=== PATIENT | female | born 1950 | race Caucasian/White ===

== ENCOUNTER 2017-12-24 09:29 | Outpatient (CLI) | payer MEDICARE ==
[2017-12-24 10:21] LABS: #Basophils 0.1 thou/uL (0.0-0.2); #Eosinphils 0.1 thou/uL (0.0-0.7); #Lymphocytes 2.3 thou/uL (1.20-3.40); #Monocytes 0.4 thou/uL (0.11-0.59); #Neutrophils 3.8 thou/uL (1.40-6.50); %Basophils 1.6 % (0.0-1.0); %Eosinophils 1.5 % (0.0-10.0); %Lymphocytes 34.2 % (21.0-51.0); %Monocytes 6.4 % (0.0-10.0); %Neutrophils 56.3 % (42.0-75.0); Hemoglobin 12.6 g/dL (12.0-16.0); Mean Corpuscular HGB CONC 32.2 g/dL (32.0-36.0); Mean Corpuscular Hemoglobin 25.8 pg (27.0-31.0); Mean Corpuscular Volume 80.3 fl (81.0-99.0); Mean Platelet Volume 8.1 fL (7.4-10.4); Platelet Count 239 thou/uL (130-400); RBC Distribution Width 11.9 % (11.5-14.5); Red Blood Cell (RBC) Count 4.86 mill/uL (4.20-5.40); White Blood Cell (WBC) Count 6.8 thou/uL (4.8-10.8)
[2017-12-24 11:02] LABS: ALT (SGPT) 26 U/L (8-55); AST (SGOT) 13 U/L (5-34); Albumin 4.2 g/dL (3.4-4.8); Alkaline Phosphatase 58 U/L (40-150); Anion Gap 17 mmol/L (10-20); BUN (Urea Nitrogen) 15 mg/dL (9.8-20.1); Bilirubin, Total 0.6 mg/dL (0.2-1.2); Calc. Creatinine Clearance 0 mL/min (70-130); Calcium 9.3 mg/dL (7.8-10.44); Carbon Dioxide 24 mmol/L (23-31); Cardiac Risk 3.2 (Less than 4.5); Chloride 103 mmol/L (98-107); Cholesterol 168 mg/dl (< 200 Desired); Estimated GFR-MDRD 71; Globulin 2.5 g/dL (2.4-3.5); Glucose 232 mg/dL (80-115); HDL Cholesterol 53 mg/dL (>60 Neg Risk); LDL Cholesterol, Calculated 95 mg/dL; Potassium 4.2 mmol/L (3.5-5.1); Protein, Total 6.7 g/dL (6.0-8.3); Sodium 140 mmol/L (136-145); Triglycerides 98 mg/dL (Less than 150)
[2017-12-24 11:19] LABS: Thyroid Stimulating Hormone 0.8673 uIU/mL (0.35-4.94)
--- NOTE | 2017-12-24 12:07 | ULT ---
THYROID ULTRASOUND: INDICATION: Thyroid goiter. FINDINGS: The right thyroid lobe measures 4.0 x 1.2 x 1.4 cm. The left thyroid lobe measures 2.1 x 1.2 x 0.9 c m. The thyroid isthmus measures 0.2 cm. There is diffuse heterogeneous appearance of the thyroid gl and. There is a slightly hyperechoic 8 mm nodule seen within the mid aspect of the right thyroid gla nd. There are 2 hypoechoic solid lesions within the left mid thyroid gland measuring 7 mm apiece. IMPRESSION: 1. Multinodular goiter. 2. TIRADS 3 lesion involving the mid right thyroid gland. No followup is recommended. 3. TIRADS 4 lesions involving the mid left thyroid gland. These are below 1 cm in size. No followu p is recommended. POS: [facility]
[2017-12-24 16:56] LABS: Hemoglobin A1c 8.8 % (4.0-6.0)
[2017-12-24 17:23] LABS: Free T4 (Free Thyroxine) 0.89 ng/dL (0.70-1.48)
== END 2017-12-24 09:30 ==
LOC: MADLABBHPM 09:29 → EDSTATUS 09:31
PROVIDERS: ATTEND Family Medicine
DX: E04.9 Nontoxic goiter, unspecified (principal); E04.2 Nontoxic multinodular goiter; G25.81 Restless legs syndrome; E11.65 Type 2 diabetes mellitus with hyperglycemia; E78.5 Hyperlipidemia, unspecified; F41.8 Other specified anxiety disorders
CPT/HCPCS: 36415; 76536; 80053; 80061; 83036; 83735; 84439; 84443; 85025

== ENCOUNTER 2018-10-10 10:40 | Outpatient (CLI) | payer MEDICARE, OTHER ==
[2018-10-10 11:39] LABS: ALT (SGPT) 33 U/L (8-55); AST (SGOT) 22 U/L (5-34); Albumin 4.3 g/dL (3.4-4.8); Alkaline Phosphatase 60 U/L (40-150); Anion Gap 15 mmol/L (10-20); BUN (Urea Nitrogen) 13 mg/dL (9.8-20.1); Bilirubin, Total 0.5 mg/dL (0.2-1.2); Calc. Creatinine Clearance 0 mL/min (70-130); Calcium 9.2 mg/dL (7.8-10.44); Carbon Dioxide 26 mmol/L (23-31); Cardiac Risk 3.6 (Less than 4.5); Chloride 105 mmol/L (98-107); Cholesterol 175 mg/dl (< 200 Desired); Estimated GFR-MDRD 73; Globulin 2.3 g/dL (2.4-3.5); Glucose 193 mg/dL (80-115); HDL Cholesterol 49 mg/dL (>60 Neg Risk); LDL Cholesterol, Calculated 105 mg/dL; Potassium 4.4 mmol/L (3.5-5.1); Protein, Total 6.6 g/dL (6.0-8.3); Sodium 142 mmol/L (136-145); Triglycerides 106 mg/dL (Less than 150)
--- NOTE | 2018-10-10 11:41 | RAD ---
TWO VIEWS OF BILATERAL HIPS: Comparison: None. History: Chronic hip pain. FINDINGS: Two views of the bilateral hips shows no evidence of acute fracture or dislocation. No significant de generative changes are seen in either hip. The sacroiliac joints and pubic symphysis are unremarkable . IMPRESSION: Unremarkable exam. POS: [facility]
[2018-10-10 12:44] LABS: Thyroid Stimulating Hormone 0.8271 uIU/mL (0.35-4.94)
[2018-10-10 17:05] LABS: Hemoglobin A1c 8.6 % (4.0-6.0)
[2018-10-10 17:28] LABS: Creatinine, Urine 147.34 mg/dL (47-110); Microalbumin/Creat Ratio 20.4 mg/g (Less than 30)
[2018-10-10 17:31] LABS: Free T4 (Free Thyroxine) 0.9 ng/dL (0.70-1.48)
== END 2018-10-10 10:41 | disposition home or self-care (01) ==
LOC: MADLABBHPM 10:40
PROVIDERS: ATTEND Family Medicine
DX: M25.551 Pain in right hip (principal); M25.552 Pain in left hip; E04.2 Nontoxic multinodular goiter; E78.5 Hyperlipidemia, unspecified; E11.9 Type 2 diabetes mellitus without complications
CPT/HCPCS: 36415; 73522; 80053; 80061; 82043; 83036; 84439; 84443

== ENCOUNTER 2019-05-14 14:13 | Outpatient (CLI) | payer MEDICARE, OTHER ==
--- NOTE | 2019-05-14 14:57 | RAD ---
Exam: 3 views lumbar spine HISTORY: Back pain. Dorsalgia. COMPARISON: None FINDINGS: 5 lumbar type vertebra. Lumbar spine vertebral body height is maintained. No fracture. Stra ightening of normal lumbar lordosis. Mild loss of disc space height and osteophyte formation in the thoracolumbar junction and upper lumbar spine. Atherosclerosis of the aorta is noted. Visualized sacrum and bony pelvis are unremarkable IMPRESSION: Mild degenerative changes
--- NOTE | 2019-05-14 15:01 | RAD ---
EXAM: Cervical spine 3 views: HISTORY: Neck pain, dorsalgia COMPARISON: None FINDINGS: C7-T1 is partially obscured on the lateral view and C1 and C2 odontoid are partially obscured on the AP open mouth view. No evidence for acute fracture or dislocation involving the visualized spine. There are disc osteophytosis and facet arthrosis changes. No evidence for malalignment. No evidence for a bone lesion. IMPRESSION: Spondylosis. No significant acute process.
== END 2019-05-14 14:14 | disposition home or self-care (01) ==
LOC: MADRAD 14:13
PROVIDERS: ATTEND Family Medicine
DX: M54.5 Low back pain (principal); M54.2 Cervicalgia; M47.812 Spondylosis without myelopathy or radiculopathy, cervical region; M47.816 Spondylosis without myelopathy or radiculopathy, lumbar region
CPT/HCPCS: 72040; 72100

== ENCOUNTER 2020-07-04 12:02 | Emergency (ER) | payer MEDICARE, OTHER ==
[2020-07-04] MEDS ORDERED: Cephalexin 500 MG CAP ONE (12:33)
== END 2020-07-04 12:48 | disposition home or self-care (01) ==
LOC: MADERS 12:02
DX: L03.114 Cellulitis of left upper limb (principal); E11.9 Type 2 diabetes mellitus without complications; I10 Essential (primary) hypertension; E78.5 Hyperlipidemia, unspecified; M19.90 Unspecified osteoarthritis, unspecified site; Z79.4 Long term (current) use of insulin; Z79.899 Other long term (current) drug therapy
CPT/HCPCS: 99283

== ENCOUNTER 2020-12-20 12:17 | Outpatient (CLI) | payer MEDICARE, OTHER ==
[2020-12-20 13:05] LABS: ALT (SGPT) 32 U/L (8-55); AST (SGOT) 23 U/L (5-34); Albumin 4.2 g/dL (3.4-4.8); Alkaline Phosphatase 47 U/L (40-110); Anion Gap 14 mmol/L (10-20); BUN (Urea Nitrogen) 8 mg/dL (9.8-20.1); Bilirubin, Total 0.6 mg/dL (0.2-1.2); Calc. Creatinine Clearance 0 mL/min (70-130); Calcium 9.1 mg/dL (7.8-10.44); Carbon Dioxide 27 mmol/L (23-31); Cardiac Risk 3.3 (Less than 4.5); Chloride 105 mmol/L (98-107); Cholesterol 145 mg/dl (< 200 Desired); Globulin 2.5 g/dL (2.4-3.5); Glucose 100 mg/dL (80-115); HDL Cholesterol 44 mg/dL (>60 Neg Risk); LDL Cholesterol, Calculated 80 mg/dL; Potassium 4.1 mmol/L (3.5-5.1); Protein, Total 6.7 g/dL (5.8-8.1); Sodium 142 mmol/L (136-145); Triglycerides 106 mg/dL (Less than 150)
[2020-12-20 13:18] LABS: #Basophils 0.1 thou/uL (0.0-0.2); #Eosinphils 0.1 thou/uL (0.0-0.7); #Lymphocytes 3.1 thou/uL (1.20-3.40); #Monocytes 0.5 thou/uL (0.11-0.59); %Basophils 1.3 % (0.0-1.0); %Eosinophils 0.9 % (0.0-10.0); %Lymphocytes 39.7 % (21.0-51.0); %Monocytes 5.9 % (0.0-10.0); %Neutrophils 52.2 % (42.0-75.0); Hemoglobin 12.9 g/dL (12.0-16.0); Mean Corpuscular HGB CONC 31.1 g/dL (32.0-36.0); Mean Corpuscular Hemoglobin 26.1 pg (27.0-31.0); Mean Corpuscular Volume 83.8 fL (78.0-98.0); Mean Platelet Volume 10.3 fL (7.4-10.4); Platelet Count 246 thou/uL (130-400); RBC Distribution Width 12.4 % (11.5-14.5); Red Blood Cell (RBC) Count 4.93 mill/uL (4.20-5.40); White Blood Cell (WBC) Count 7.7 thou/uL (4.8-10.8)
== END 2020-12-20 12:18 | disposition home or self-care (01) ==
LOC: MADLAB 12:17
PROVIDERS: ATTEND Family Medicine
DX: M25.551 Pain in right hip (principal); E78.5 Hyperlipidemia, unspecified; E11.9 Type 2 diabetes mellitus without complications; I10 Essential (primary) hypertension; R26.81 Unsteadiness on feet; F31.9 Bipolar disorder, unspecified; F41.8 Other specified anxiety disorders
CPT/HCPCS: 36415; 80053; 80061; 84443; 85025

== ENCOUNTER 2021-04-15 08:56 | Outpatient (CLI) | payer MEDICARE | END 2021-04-15 08:57 | disposition home or self-care (01) | LOC: MADRAD 08:56 | PROVIDERS: ATTEND Family Medicine | DX: M25.551 Pain in right hip (principal); M54.50 Low back pain, unspecified; M16.11 Unilateral primary osteoarthritis, right hip; M47.816 Spondylosis without myelopathy or radiculopathy, lumbar region | CPT/HCPCS: 72100 ==

== ENCOUNTER 2021-05-16 15:12 | Emergency (ER) | payer MEDICARE ==
[2021-05-16 16:13] LABS: Bilirubin Negative (Negative); Blood, Urine Negative (Negative); Clarity Clear (Clear); Glucose, Urine (Dipstick) Negative (Negative); Ketone, Urine Negative (Negative); Leukocyte Negative (Negative); Nitrite Negative (Negative); Protein, Urine (Dipstick) Negative (Neg-Trace); Urobilinogen 0.2 mg/dL (Less than 2); pH, Urine 5.5 (5.0-9.0)
== END 2021-05-16 16:45 | disposition home or self-care (01) ==
LOC: MADERS 15:12
DX: B02.9 Zoster without complications (principal); E11.9 Type 2 diabetes mellitus without complications; E78.5 Hyperlipidemia, unspecified; I10 Essential (primary) hypertension
CPT/HCPCS: 81003; 99284

== ENCOUNTER 2021-06-15 07:53 | Outpatient (CLI) | payer MEDICARE, OTHER | END 2021-06-15 07:54 | disposition home or self-care (01) | LOC: MADRAD 07:53 | PROVIDERS: ATTEND Family Medicine | DX: E04.2 Nontoxic multinodular goiter (principal) | CPT/HCPCS: 76536 ==

== ENCOUNTER 2021-07-13 19:49 | Emergency (ER) | payer MEDICARE, OTHER | END 2021-07-13 21:28 | disposition home or self-care (01) | LOC: MADERS 19:49 | DX: M13.0 Polyarthritis, unspecified (principal); F43.21 Adjustment disorder with depressed mood; E78.5 Hyperlipidemia, unspecified; I10 Essential (primary) hypertension; Z79.84 Long term (current) use of oral hypoglycemic drugs; Z79.4 Long term (current) use of insulin; Z79.899 Other long term (current) drug therapy | CPT/HCPCS: 99283 ==

== ENCOUNTER 2021-10-17 15:45 | Outpatient (CLI) | payer MEDICARE | END 2021-10-17 15:46 | disposition home or self-care (01) | LOC: MADRAD 15:45 | PROVIDERS: ATTEND Family Medicine | DX: M25.561 Pain in right knee (principal) ==

== ENCOUNTER 2022-03-12 20:46 | Emergency (ER) | payer MEDICARE ==
[2022-03-12] MEDS ORDERED: predniSONE 20 MG TAB ONE (22:09)
[2022-03-12] MEDS ORDERED: predniSONE 10 MG TAB ONE (22:09)
== END 2022-03-12 22:17 | disposition home or self-care (01) ==
LOC: MADERS 20:46
DX: L23.7 Allergic contact dermatitis due to plants, except food (principal); I10 Essential (primary) hypertension; E11.9 Type 2 diabetes mellitus without complications; E78.5 Hyperlipidemia, unspecified; M19.90 Unspecified osteoarthritis, unspecified site; Z79.84 Long term (current) use of oral hypoglycemic drugs; Z79.899 Other long term (current) drug therapy
CPT/HCPCS: 99282; J7512

== ENCOUNTER 2023-08-20 11:40 | Outpatient (CLI) | payer MEDICARE, OTHER | END 2023-08-20 11:41 | disposition home or self-care (01) | LOC: MADLAB 11:40 → MADRAD 11:41 | PROVIDERS: ATTEND Internal Medicine | DX: J34.89 Other specified disorders of nose and nasal sinuses (principal) | CPT/HCPCS: 70220 ==

== ENCOUNTER 2023-08-28 10:42 | Outpatient (CLI) | payer MEDICARE, OTHER | END 2023-08-28 10:43 | disposition home or self-care (01) | LOC: MADLAB 10:42 → MADCT 10:43 | PROVIDERS: ATTEND Internal Medicine | DX: R09.89 Other specified symptoms and signs involving the circulatory and respiratory systems (principal); I65.23 Occlusion and stenosis of bilateral carotid arteries; M47.811 Spondylosis without myelopathy or radiculopathy, occipito-atlanto-axial region; I67.89 Other cerebrovascular disease; J34.89 Other specified disorders of nose and nasal sinuses ==